=== PATIENT | male | born 1975 | race Caucasian/White ===

== ENCOUNTER 2018-02-12 18:26 | Inpatient (IN) | payer OTHER ==
[~2018-02-12] VITALS: Ht 188 cm; Wt 73.5 kg
[2018-02-12 18:35] VITALS: BP 123/84
[2018-02-12] MEDS ORDERED: CIPRO500 MG PO (18:38)
[2018-02-12 19:02] LABS: MPV 6.9 fl. (7.2-11.1)
[2018-02-12 19:03] LABS: HEMATOCRIT 44.7 % (42.0-52.0); MCH 29.1 pg (26.0-34.0); MCHC 33.5 g/dL (28.0-37.0); MCV 86.8 fL (80.0-100.0); NUCLEATED RBCS 0 /100WBC; PLATELET COUNT* 321 thou/uL (150-400); RBC 5.15 mil/uL (4.50-6.00); RDW-CV 12.9 % (10.5-14.5); WBC 11.9 thou/uL (4.0-11.0)
[2018-02-12 19:09] LABS: CALCIUM 8.6 mg/dL (8.5-10.1); CREATININE 0.9 mg/dL (0.6-1.3)
[2018-02-12 19:14] LABS: ALBUMIN 3.7 g/dL (3.4-5.0); TOTAL BILIRUBIN 0.9 mg/dL (<0.1-1.0); TOTAL PROTEIN 7.5 g/dL (6.4-8.2)
[2018-02-12 19:17] LABS: INFLUENZA A ANTIGEN None Detected (None Detect); INFLUENZA B ANTIGEN None Detected (None Detect)
[2018-02-12 19:21] LABS: ABSOLUTE LYMPHOCYTES 0.5 thou/uL (0.8-5.3); ABSOLUTE MONOCYTES 0.2 thou/uL (0.0-1.2); ABSOLUTE NEUTROPHILS 11.2 thou/uL (1.6-8.1); PLATELET ESTIMATE ADEQUATE
[2018-02-12 19:45] LABS: URINE BILIRUBIN NEGATIVE (Negative); URINE BLOOD NEGATIVE (Negative); URINE CLARITY CLEAR; URINE COLOR YELLOW; URINE GLUCOSE-RANDOM NEGATIVE (Negative); URINE KETONES 1+ (Negative); URINE LEUKOCYTES-REFLEX TRACE (Negative); URINE NITRITE-REFLEX NEGATIVE (Negative); URINE PROTEIN TRACE (Negative); URINE SPECIFIC GRAVITY 1.015 (1.005-1.030)
[2018-02-12 19:50] LABS: BACTERIA-REFLEX None Seen /HPF (None Seen); CASTS None Seen /LPF (None Seen); CRYSTALS None Seen /LPF (None Seen); MUCUS >6 Heavy strn/LPF (None Seen); SQUAMOUS 0-3 Few /LPF (0-3); URINE RBC 0-2 Rare /HPF (0-2); URINE WBC-REFLEX 0-5 Rare /HPF (0-5)
[2018-02-12 21:21] VITALS: BP 124/70
[2018-02-12 21:35] VITALS: BP 121/69
--- NOTE | 2018-02-13 06:50 | NUR ---
Admit at 2130 last evening. He had been having nausea and vomiting at home and what he describes as abdominal discomfort. He is a paraplegic so it is difficult for him to explain if it's pain. He had nausea med in the ED and hasn't requested further nausea med. He went down for a abdominal CT with contrast at about midnight. Results of scan have not been seen. He straight caths himself for urine output at home. He has cathed x 2 this shift. Urine had strong odor, he's had 450mls output. He has slept well.
[2018-02-13 06:55] LABS: ABSOLUTE EOSINOPHILS 0.1 thou/uL (0.0-0.7); ABSOLUTE LYMPHOCYTES 0.7 thou/uL (0.8-5.3); ABSOLUTE MONOCYTES 0.4 thou/uL (0.0-1.2); BASOPHILS 0.4 %; EOSINOPHILS 1.1 %; HEMATOCRIT 37.5 % (42.0-52.0); LYMPHOCYTES 9.8 %; MCH 29.3 pg (26.0-34.0); MCHC 33.7 g/dL (28.0-37.0); MCV 87.2 fL (80.0-100.0); NUCLEATED RBCS 0 /100WBC; PLATELET COUNT* 272 thou/uL (150-400); POLYS 83.7 %; RBC 4.31 mil/uL (4.50-6.00); WBC 7.1 thou/uL (4.0-11.0)
[2018-02-13 06:56] LABS: CALCIUM 7.6 mg/dL (8.5-10.1); CREATININE 0.5 mg/dL (0.6-1.3)
[2018-02-13 07:12] LABS: HEMOGLOBIN 12.6 gm/dL (14.0-18.0)
[2018-02-13 08:00] VITALS: BP 124/74
[2018-02-13 11:25] LABS: CALCIUM 7.5 mg/dL (8.5-10.1); CREATININE 0.5 mg/dL (0.6-1.3); MAGNESIUM 1.5 mg/dL (1.8-2.4); POTASSIUM 3.2 mmol/L (3.5-5.1)
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
[2018-02-13 15:43] VITALS: BP 129/78; BP 97/65
--- NOTE | 2018-02-13 18:56 | NUR ---
ALERT AND ORIENTED X4. UP WITH CONTACT GUARD ASSIST TO THE CHAIR. IV IS PATENT AND SALINE LOCKED. TOLERATING DIET. PATIENT HAS HAD DIARRHEA MULTIPLE TIMES THROUGHOUT SHIFT. C-DIFF ISOLATION FOR PENDING STOOL. VSS ON ROOM AIR. HOURLY ROUNDS HAVE BEEN MAINTAINED THROUGHOUT SHIFT. CALL LIGHT IS WITHIN REACH. NURSING WILL CONTINUE TO MONITOR.
[2018-02-13 20:00] VITALS: BP 138/84
[2018-02-13 23:30] VITALS: BP 128/75
--- NOTE | 2018-02-13 23:30 | NUR ---
ASSUMED PT CARE AT 1930. ASSESSMENT COMPLETED CHARTED. ABLE TO MAKE NEEDS KNOWN. GIRLFRIEND IN ROOM AT THIS TIME. NO C/O PAIN OR DISCOMFORT. ON ISOLATION WHILE CDIFF SAMPLE IS BEING TESTED. UP TO WHEELCHAIR, SELF CATH, SOMETIMES HAS INCONTINENT EPISODES. TX TO ROOM 311 AT AROUND 2220. WILL CONTINUE TO MONITOR.
--- NOTE | 2018-02-14 05:53 | NUR ---
PT TRANSFERED UP FROM [facility] AT 2320. IV PATENT. MEDS GIVEN PER E-MAR. NO REPORTS OF PAIN OR NAUSEA. PTS SIGNIFICANT OTHER REMAINED AT BEDSIDE. WILL CONTINUE WITH PLAN OF CARE.
[2018-02-14 09:15] VITALS: BP 136/90
[2018-02-14 15:07] VITALS: BP 136/90
[2018-02-14] MEDS ORDERED: PROBIOTIC1 EAC1 PO (15:10)
--- NOTE | 2018-02-14 15:48 | NUR ---
PATIENT DISCHARGED TO HOME. DISCHARGE PAPERS REVIEWED AND SIGNED. NO PRESCRIPTIONS. IV REMOVED. PATIENT DENIES ANY FURTHER NEEDS. PATIENT TAKEN BY WHEELCHAIR TO EXIT. LEFT WITH SPOUSE.
== END 2018-02-14 15:40 | disposition home or self-care (01) | DRG 372 ==
LOC: M.ERS 18:26 → M.2W 19:22 → M.3W 19:22 → M.TBA-ER 19:22 → M.2W 20:00 → M.3W 02-13 23:28
PROVIDERS: Nurse Practitioner Family; ADMIT Internal Medicine
DX: A04.9 Bacterial intestinal infection, unspecified (principal); R65.10 Systemic inflammatory response syndrome (SIRS) of non-infectious origin without acute organ dysfunction; E87.2 Acidosis; G82.20 Paraplegia, unspecified; A08.4 Viral intestinal infection, unspecified; E86.0 Dehydration; D72.829 Elevated white blood cell count, unspecified; N31.9 Neuromuscular dysfunction of bladder, unspecified; T14.8XXA Other injury of unspecified body region, initial encounter; X58.XXXA Exposure to other specified factors, initial encounter; Y93.89 Activity, other specified; Y92.89 Other specified places as the place of occurrence of the external cause; Y99.8 Other external cause status; Z79.899 Other long term (current) drug therapy